=== PATIENT | female | born 1965 | race African-American/Black ===

== ENCOUNTER 2020-03-15 13:57 | Outpatient (REF) | payer MEDICAID, SELFPAY ==
--- NOTE | 2020-03-15 | US_ITS ---
EXAMINATION: US CHEST CLINICAL INFORMATION: Superficial lump over left shoulder COMPARISON: None TECHNIQUE: Doppler and grayscale evaluation of the soft tissues over the left shoulder FINDINGS: There is a 0.9 x 0.7 x 1 cm solid hyperechoic lesion corresponding to palpable abnormality. This appears avascular. Ultrasound appearance is suggestive of a lipoma. This is 2 mm deep from the skin surface. IMPRESSION: 0.9 x 0.7 x 1 cm solid hyperechoic lesion suggestive of a lipoma. Management should be determined on a clinical basis.
== END 2020-03-15 13:58 | disposition home or self-care (01) ==
LOC: HO.US 13:57
PROVIDERS: Visit Provider Internal Medicine
DX: R60.9 Edema, unspecified (principal)
CPT/HCPCS: 76604

== ENCOUNTER 2020-09-23 13:13 | Outpatient (REF) | payer MEDICAID, SELFPAY ==
--- NOTE | ~2020-09-23 | MM_ITS ---
EXAMINATION: MM DIAGNOSTIC DIGITAL BREAST TOMOSYNTHESIS, LEFT CLINICAL INFORMATION: Short interval six-month follow-up probable benign grouped calcifications central and mid outer left breast. Prior history reduction mammoplasty 1997 and benign left excisional biopsy 1994. Family history breast cancer mother, age 42 and sister. Family history ovarian cancer in another sister. One sister +BRCA1. The lifetime risk of breast cancer based on the Tyrer-Cuzick Model is 34%. COMPARISON: Mammography: 01/29/2020, outside mammography from [place] 04/06/2017, 03/24/2016 and 07/31/2014. TECHNIQUE: Digital breast tomosynthesis is performed in both the craniocaudal and mediolateral oblique views along with computer-aided detection (CAD). Synthesized 2D images are generated from the tomosynthesis. Additional views are obtained: Exaggerated CC, magnification CC x2, magnification ML x2. FINDINGS: The breasts are heterogeneously dense, which may obscure small masses (ACR BI-RADS breast composition Category c). Parenchymal pattern is similar to prior studies. There is no developing density or interval mass or architectural abnormality. The 3 groups of calcifications central and mid outer left breast for follow-up are stable from prior diagnostic exam. In retrospect, they are likely chronic and stable from more remote outside studies, although better appreciated with magnification technique. Given the family history and TC lifetime risk score, continued surveillance will be performed, next due at time of annual mammography in 6 months. Results are provided to the patient at time of visit by the technologist. MM/MM tomosynthesis diagnostic LT IMPRESSION: The left breast calcifications for follow-up are stable from prior diagnostic exam, and likely chronic, similar to standard mammography. ASSESSMENT: BI-RADS 3: Probably Benign RECOMMENDATION: Diagnostic mammography at time of annual bilateral exam, due in 6 months. This patient's information was entered into a reminder system with a target due date for their next mammogram.
== END 2020-09-23 13:14 | disposition home or self-care (01) ==
LOC: HO.MAMMO 13:13
PROVIDERS: Visit Provider Internal Medicine
DX: R92.1 Mammographic calcification found on diagnostic imaging of breast (principal)
CPT/HCPCS: 77061; 77065

== ENCOUNTER → 2020-10-08 19:18 | Outpatient (REF) | payer MEDICAID, SELFPAY | LOC: HO.SL 19:18 | PROVIDERS: Visit Provider Internal Medicine | DX: G47.33 Obstructive sleep apnea (adult) (pediatric) (principal) | CPT/HCPCS: 95811 ==

== ENCOUNTER → 2020-12-20 08:22 | Outpatient (BNVA) | payer MEDICAID, SELFPAY | PROVIDERS: PCP Internal Medicine; Referring Provider Internal Medicine; Visit Provider Surgery | DX: E66.01 Morbid (severe) obesity due to excess calories (principal); Z68.43 Body mass index [BMI] 50.0-59.9, adult | CPT/HCPCS: 99202 ==

== ENCOUNTER 2021-01-03 12:31 | Outpatient (REF) | payer MEDICAID, SELFPAY ==
--- NOTE | ~2021-01-03 | XR_ITS ---
EXAMINATION: XR CHEST CLINICAL INFORMATION: Shortness of breath COMPARISON: None TECHNIQUE: 2 views of the chest were obtained. FINDINGS: No significant abnormality is noted involving the heart, lungs, mediastinum, bony thorax or soft tissues. XR/XR chest 2V IMPRESSION: No acute disease.
--- NOTE | 2021-01-03 12:37 | ECG_ITS ---
Test Reason : SOB Blood Pressure : / mmHG Vent. Rate : 090 BPM Atrial Rate : 090 BPM P-R Int : 160 ms QRS Dur : 084 ms QT Int : 366 ms P-R-T Axes : 082 058 012 degrees QTc Int : 447 ms Sinus rhythm with Premature atrial complexes Nonspecific ST abnormality Abnormal ECG No previous ECGs available Referred By: Chasity Bliss Electronically Signed By:Waldemar Santana
[2021-01-03 13:04] LABS: MANUAL DIFF FLAG NO
[2021-01-03 13:07] LABS: Basophils Percent Auto 0.4 % (0-2); Eosinophils Absolute Auto 0.1 X10*3/uL (0.0-0.4); Eosinophils Percent Auto 1.3 % (0-4); Hematocrit 43.2 % (37-47); Imm Gran Abs Auto 0.02 X10*3/uL (0.00-0.03); Imm Gran Pct Auto 0.2 % (0.0-0.4); Lymphocytes Absolute Auto 2.1 X10*3/uL (1.2-4.9); Lymphocytes Percent Auto 24.5 % (20-40); Mean Corpuscular HGB Conc 32.4 g/dl (31.0-35.0); Mean Corpuscular Hemoglobin 29.8 pg (27.0-33.0); Mean Corpuscular Volume 91.9 fL (80-98); Mean Platelet Volume 12.1 fL (9.4-12.3); Monocytes Absolute Auto 0.6 X10*3/uL (0.1-1.2); Monocytes Percent Auto 7.2 % (2-11); Neutrophils Absolute Auto 5.6 X10*3/uL (2.0-8.3); Neutrophils Percent Auto 66.4 % (45-73); Platelet Count 253 X10*3/uL (160-400); Red Cell Distribution Width 12.6 % (11.0-16.0); White Blood Count 8.4 X10*3/uL (4.8-10.8)
[2021-01-03 13:17] LABS: Estimated Average Glucose 126 mg/dL
[2021-01-03 13:32] LABS: Alanine Aminotransferase 50 U/L (0-31); Albumin Level 4.1 g/dL (3.5-5.0); Alkaline Phosphatase 59 U/L (39-117); Anion Gap 13 (12-20); Aspartate Amino Transferase 29 U/L (5-31); Bilirubin Total 0.5 mg/dL (0.0-1.0); Blood Urea Nitrogen 19 mg/dL (9-16); C Reactive Protein 2.51 mg/dL (< or = 0.50); Calcium 10.3 mg/dL (8.4-10.2); Carbon Dioxide 31 mmol/L (22-29); Chloride 101 mmol/L (96-108); Cholesterol 88 mg/dL; Estimated Glomerular Filt Rate 44; Glucose Fasting 111 mg/dL (60-99); HDL Cholesterol 33 mg/dL; Iron 48 mcg/dL (30-160); LDL Cholesterol Calculated 44 mg/dl; Percent Iron Saturation 17 % (15-50); Potassium 3.8 mmol/L (3.3-5.1); Sodium 141 mmol/L (135-145); Total Iron Binding Capacity 282 mcg/dL (228-428); Total Protein 7.8 g/dL (6.5-8.0); Triglycerides 59 mg/dL; Unsaturated Iron Binding 234 ug/dL
[2021-01-03 13:52] LABS: Thyroid Stimulating Hormone 1.81 uIU/mL (0.32-4.0); Vitamin D 25-OH Total 42.6 ng/mL (>30)
[2021-01-03 13:57] LABS: Vitamin B12 585 pg/mL (200-900)
[2021-01-06 11:36] LABS: Calcium (PTHI) 10.1 mg/dL (8.6-10.4); PTHI 67 pg/mL (14-64)
[2021-01-07 05:17] LABS: Zinc 99 mcg/dL (60-130)
[2021-01-07 19:51] LABS: Vitamin A 83 mcg/dL (38-98)
[2021-01-09 12:40] LABS: Vitamin B1 <6 nmol/L (8-30)
[2021-01-11 01:57] LABS: Cotinine, U 3926 ng/mL; Nicotine, U 3921 ng/mL
== END 2021-01-03 12:32 | disposition home or self-care (01) ==
LOC: HO.XRAY 12:31
PROVIDERS: PCP Internal Medicine; Visit Provider Surgery
DX: Z01.818 Encounter for other preprocedural examination (principal); R06.02 Shortness of breath; K91.2 Postsurgical malabsorption, not elsewhere classified; Z90.3 Acquired absence of stomach [part of]; Z87.891 Personal history of nicotine dependence
CPT/HCPCS: 71046; 80053; 80061; 80323; 82306; 82607; 83013; 83036; 83540; 83970; 84425; 84443; 84590; 84630; 85025; 86140; 93005; 99211

== ENCOUNTER 2021-01-03 13:30 | Outpatient (REF) | payer MEDICAID, SELFPAY ==
[2021-01-07 14:02] LABS: H Pylori Breath Test NOT DETECTED (NOT DETECTED)
== END 2021-01-03 13:31 | disposition home or self-care (01) ==
LOC: HO.LNP 13:30
PROVIDERS: Visit Provider Surgery
DX: Z01.818 Encounter for other preprocedural examination (principal)
CPT/HCPCS: 83013

== ENCOUNTER → 2021-01-06 07:52 | Outpatient (BNVA) | payer MEDICAID, SELFPAY | PROVIDERS: PCP Internal Medicine; Visit Provider Surgery ==

== ENCOUNTER → 2021-01-17 08:23 | Outpatient (BNVA) | payer MEDICAID, SELFPAY | PROVIDERS: PCP Internal Medicine; Visit Provider Dietitian, Registered | DX: E66.01 Morbid (severe) obesity due to excess calories (principal); E11.9 Type 2 diabetes mellitus without complications; Z71.3 Dietary counseling and surveillance | CPT/HCPCS: 97802 ==

== ENCOUNTER → 2021-02-07 14:03 | Outpatient (BNVA) | payer MEDICAID, SELFPAY | PROVIDERS: PCP Internal Medicine; Referring Provider Internal Medicine; Visit Provider Surgery | DX: E66.01 Morbid (severe) obesity due to excess calories (principal); Z68.42 Body mass index [BMI] 45.0-49.9, adult | CPT/HCPCS: 99212 ==

== ENCOUNTER 2021-02-24 13:38 | Outpatient (REF) | payer MEDICAID, SELFPAY ==
--- NOTE | ~2021-02-24 | MM_ITS ---
EXAMINATION: MM DIAGNOSTIC DIGITAL BREAST TOMOSYNTHESIS, BILATERAL CLINICAL INFORMATION: Due for yearly. Also follow-up surveillance probable benign groups of calcifications central outer and mid outer left breast. Prior history reduction mammoplasty 1997 and benign left excisional biopsy 1994. Family history breast cancer mother, age 42 and sister. Family history ovarian cancer in another sister. One sister +BRCA1. The lifetime risk of breast cancer based on the Tyrer-Cuzick Model is 27%. To date patient has not had genetic testing. She notes having had a benign/negative outside high risk breast MR exam in past year performed in [place], [place]. COMPARISON: Mammography: 09/23/2020, 01/29/2020 (diagnostic, BI-RADS 3); outside mammography from [place] 04/06/2017, 03/24/2016 and 07/31/2014. TECHNIQUE: Digital breast tomosynthesis is performed in both the craniocaudal and mediolateral oblique views along with computer-aided detection (CAD). Synthesized 2D images are generated from the tomosynthesis. Additional views are obtained: Left MLO, magnification left CC, magnification left ML x2. FINDINGS: The breasts are heterogeneously dense, which may obscure small masses (ACR BI-RADS breast composition Category c). Parenchymal pattern is similar to prior studies and there is no interval mass, developing density, or architectural abnormality. Again, there is benign bulky coarse calcification posterior 4:00 right breast and scattered bilateral benign punctate predominantly dermal calcifications. The left breast calcifications for follow-up in 3 groups anterior to mid central outer breast are without significant change from prior diagnostic exam. These are likely chronic but better appreciated on more recent diagnostic mammography with magnification views. Continued surveillance is recommended with left mammography in 6 months. Results are discussed with the patient at time of visit. MM/MM tomosynthesis diagnostic BI IMPRESSION: 1. Left: No significant changes in the 3 groups of calcifications central outer left breast. 2. Right: No mammographic evidence of malignancy. ASSESSMENT: BI-RADS 3: Probably Benign RECOMMENDATION: 1. Diagnostic left mammography in 6 months. 2. The lifetime risk of breast cancer based on the Tyrer-Cuzick Model is 27%. Additional annual adjunct screening with breast MRI may be of benefit in women with a risk score of 20% or greater. This patient's information was entered into a reminder system with a target due date for their next mammogram.
== END 2021-02-24 13:39 | disposition home or self-care (01) ==
LOC: HO.MAMMO 13:38
PROVIDERS: Visit Provider Internal Medicine
DX: R92.1 Mammographic calcification found on diagnostic imaging of breast (principal)
CPT/HCPCS: 77062; 77066

== ENCOUNTER 2021-02-26 13:23 | Outpatient (REF) | payer MEDICAID, SELFPAY ==
[2021-03-04 16:07] LABS: Vitamin B1 12 nmol/L (8-30)
[2021-03-04 19:41] LABS: Cotinine, U 20 ng/mL; Nicotine, U 7 ng/mL
== END 2021-02-26 13:24 | disposition home or self-care (01) ==
LOC: HO.LAB 13:23
PROVIDERS: PCP Internal Medicine; Referring Provider Internal Medicine; Visit Provider Surgery
DX: Z01.818 Encounter for other preprocedural examination (principal); E66.01 Morbid (severe) obesity due to excess calories; Z68.42 Body mass index [BMI] 45.0-49.9, adult; E51.9 Thiamine deficiency, unspecified; Z87.891 Personal history of nicotine dependence
CPT/HCPCS: 36415; 80323; 84425; 99212

== ENCOUNTER 2021-03-28 15:48 | Outpatient (REF) | payer MEDICAID, SELFPAY ==
--- NOTE | ~2021-03-28 | XR_ITS ---
EXAMINATION: XR ANKLE, RIGHT XR ANKLE, LEFT CLINICAL INFORMATION: Bilateral pain and swelling COMPARISON: None TECHNIQUE: 3 views of the right ankle. 3 views of the left ankle. FINDINGS: Right ankle: No fracture or dislocation. The ankle mortise is congruent. Moderate hypertrophic spurring at the plantar aponeurosis to the calcaneus. Minimal spurring at the Achilles insertion. Circumferential soft tissue swelling which is greatest laterally. No significant joint effusion. Left ankle: No fracture or dislocation. The ankle mortise is congruent. No ankle joint effusion. Moderate hypertrophic spurring at the plantar aponeurosis to the calcaneus. Mild soft tissue swelling. XR/XR ankle LT min 3V IMPRESSION: No acute osseous abnormality of either ankle. Mild soft tissue swelling. Heel spurs.
--- NOTE | ~2021-03-28 | US_ITS ---
EXAMINATION: US VENOUS ULTRASOUND WITH DOPPLER LOWER EXTREMITY, BILATERAL CLINICAL INFORMATION: Bilateral lower extremity pain, ankle swelling. Assess for occult DVT. COMPARISON: None TECHNIQUE: Ultrasound of the deep veins is performed from the hip to the calf with compression sonography and color and pulse Doppler assessment. Spectral analysis with color-flow imaging is performed. FINDINGS: RIGHT: There is normal venous compression and respiratory variation and augmented flow. The visualized common femoral vein, superficial femoral vein, profunda femoral vein, popliteal vein, and the trifurcation region shows no evidence of deep venous thrombosis. No popliteal fossa cyst. LEFT: There is normal venous compression and respiratory variation and augmented flow. The visualized common femoral vein, superficial femoral vein, profunda femoral vein, popliteal vein, and the trifurcation region shows no evidence of deep venous thrombosis. No popliteal fossa cyst. US/US venous duplex LE BI IMPRESSION: No DVT demonstrated in the bilateral lower extremity.
--- NOTE | ~2021-03-28 | XR_ITS ---
EXAMINATION: XR ANKLE, RIGHT XR ANKLE, LEFT CLINICAL INFORMATION: Bilateral pain and swelling COMPARISON: None TECHNIQUE: 3 views of the right ankle. 3 views of the left ankle. FINDINGS: Right ankle: No fracture or dislocation. The ankle mortise is congruent. Moderate hypertrophic spurring at the plantar aponeurosis to the calcaneus. Minimal spurring at the Achilles insertion. Circumferential soft tissue swelling which is greatest laterally. No significant joint effusion. Left ankle: No fracture or dislocation. The ankle mortise is congruent. No ankle joint effusion. Moderate hypertrophic spurring at the plantar aponeurosis to the calcaneus. Mild soft tissue swelling. XR/XR ankle RT min 3V IMPRESSION: No acute osseous abnormality of either ankle. Mild soft tissue swelling. Heel spurs.
== END 2021-03-28 15:49 | disposition home or self-care (01) ==
LOC: HO.US 15:48
PROVIDERS: PCP Internal Medicine; Visit Provider Emergency Medicine
DX: M25.473 Effusion, unspecified ankle (principal)
CPT/HCPCS: 73610; 93970

== ENCOUNTER → 2021-04-07 14:12 | Outpatient (BNVA) | payer MEDICAID, SELFPAY | PROVIDERS: PCP Internal Medicine; Referring Provider Internal Medicine; Visit Provider Physician Assistant Surgical | DX: E66.01 Morbid (severe) obesity due to excess calories (principal); Z68.42 Body mass index [BMI] 45.0-49.9, adult | CPT/HCPCS: 99212 ==

== ENCOUNTER → 2021-06-10 12:29 | Outpatient (BNVA) | payer MEDICAID, SELFPAY | PROVIDERS: PCP Internal Medicine; Visit Provider Surgery Vascular Surgery | DX: I83.11 Varicose veins of right lower extremity with inflammation (principal) | CPT/HCPCS: 99212 ==

== ENCOUNTER → 2021-06-20 08:04 | Outpatient (BNVA) | payer MEDICAID, SELFPAY | PROVIDERS: PCP Internal Medicine; Visit Provider Physician Assistant Surgical ==

== ENCOUNTER → 2021-06-23 08:02 | Outpatient (BNVA) | payer MEDICAID, SELFPAY | PROVIDERS: PCP Internal Medicine; Visit Provider Physician Assistant Surgical ==

== ENCOUNTER → 2021-07-02 14:36 | Outpatient (BNVA) | payer MEDICAID, SELFPAY | PROVIDERS: PCP Internal Medicine; Visit Provider Physician Assistant | DX: M76.70 Peroneal tendinitis, unspecified leg (principal); M72.2 Plantar fascial fibromatosis | CPT/HCPCS: 99202 ==

== ENCOUNTER 2021-08-25 14:43 | Outpatient (REF) | payer MEDICAID, SELFPAY ==
--- NOTE | ~2021-08-25 | MM_ITS ---
EXAMINATION: MM DIAGNOSTIC DIGITAL BREAST TOMOSYNTHESIS, LEFT CLINICAL INFORMATION: Follow-up surveillance probable benign groups of calcifications central outer and mid outer left breast. Prior history reduction mammoplasty 1997 and prior history benign left excisional biopsy 1994. Family history breast cancer mother, age 42 and sister. Family history ovarian cancer in another sister. One sister +BRCA1. COMPARISON: Mammography: 02/24/2021, 01/23/2021, 01/29/2020 (diagnostic, BI-RADS 3); outside mammography 04/06/2017 ([place], [place]). TECHNIQUE: Digital breast tomosynthesis is performed in both the craniocaudal and mediolateral oblique views along with computer-aided detection (CAD). Synthesized 2D images are generated from the tomosynthesis. Additional views are obtained: CC, MLO, magnification CC, magnification ML x2. FINDINGS: The breasts are heterogeneously dense, which may obscure small masses (ACR BI-RADS breast composition Category c). Parenchymal distribution is similar to prior studies. There is no developing density or interval mass or architectural abnormality. The axilla and skin contours are unremarkable. Left breast calcifications for follow-up anterior to mid central outer breast in several groups are similar to prior diagnostic exams. There are no focal increasing calcifications. Calcifications will be reassessed again at time of annual mammography to conclude two-year surveillance. Results are provided to the patient at time of visit by the technologist. MM/MM tomosynthesis diagnostic LT IMPRESSION: No significant changes from prior diagnostic studies. ASSESSMENT: BI-RADS 3: Probably Benign RECOMMENDATION: Diagnostic mammography at time of annual bilateral mammography, due in 6 months. This patient's information was entered into a reminder system with a target due date for their next mammogram.
== END 2021-08-25 14:44 | disposition home or self-care (01) ==
LOC: HO.MAMMO 14:43
PROVIDERS: PCP Internal Medicine; Visit Provider Internal Medicine
DX: R92.1 Mammographic calcification found on diagnostic imaging of breast (principal)
CPT/HCPCS: 77061; 77065

== ENCOUNTER → 2021-08-29 08:09 | Outpatient (BNVA) | payer MEDICAID, SELFPAY | PROVIDERS: PCP Internal Medicine; Visit Provider Physician Assistant Surgical | DX: E66.01 Morbid (severe) obesity due to excess calories (principal) | CPT/HCPCS: Q3014 ==

== ENCOUNTER 2021-09-24 07:57 | Outpatient (REF) | payer MEDICAID, SELFPAY ==
--- NOTE | ~2021-09-24 | US_ITS ---
EXAMINATION: US LOWER EXTREMITY VENOUS (REFLUX EXAM), BILATERAL CLINICAL INDICATION: This is a 56-year-old female with venous insufficiency and varicose veins. COMPARISON: None. TECHNIQUE: Color flow triplex imaging and compression Doppler was performed to evaluate both the deep and the superficial systems bilaterally. To evaluate the superficial system, the examination was performed in the upright position. Color-flow Doppler ultrasound and compression ultrasound were utilized. In addition, maneuvers were utilized to demonstrate reflux. FINDINGS: 1. DEEP VENOUS ULTRASOUND OF THE RIGHT LOWER EXTREMITY: Common Femoral Vein: Compressible, normal respiratory variation and augmented flow. Femoral vein: Compressible, normal color flow and augmentation. Popliteal Vein: Compressible, normal augmentation. There is reflux in the popliteal vein with reflux of 808 ms. Deep Reflux: There is no evidence of reflux in the deep system in either the common femoral vein. There is reflux in the popliteal vein. There is no evidence of a Blum's cyst. 2. SUPERFICIAL ULTRASOUND WITH DOPPLER OF RIGHT LOWER EXTREMITY: GREAT SAPHENOUS VEIN: Saphenofemoral Junction: 0.9 cm. The reflux time is 3252 ms. Mid Thigh: 0.6 cm. The reflux time is 1268 ms. Above Knee: 0.9 cm. The reflux time is 3508 ms. Below Knee: 0.6 cm. The reflux time is 3552 ms per Mid Calf: 0.3 cm. The reflux time is 1752 ms. Ankle: 0.3 cm. There is no reflux. GSV REFLUX: There is reflux throughout the great saphenous vein. DUPLICATED GREAT SAPHENOUS VEIN: None SMALL SAPHENOUS VEIN: Proximal: 0.6 cm Distal: 0.4 cm SSV REFLUX: No evidence of reflux. VEIN OF GIACOMINI: None Imaged. PERFORATORS: There are 0.2 cm perforators with reflux in the mid calf. Multiple perforators are present. VARICOSITIES: This veins are present. There is a 0.5 cm varicose vein with greater than 2 seconds of reflux off the small saphenous vein. There are 0.5 cm varicose veins in the proximal thigh and mid thigh with greater than 3 seconds of reflux. 3. DEEP VENOUS ULTRASOUND OF THE LEFT LOWER EXTREMITY: Common Femoral Vein: Compressible, normal respiratory variation and augmented flow. Femoral Vein: Compressible, normal color flow and augmentation. Popliteal Vein: Compressible, normal augmentation. There is reflux in the popliteal vein of 1656 ms. Deep Reflux: There is no evidence of reflux in the deep system in either the common femoral vein. But there is reflux in the popliteal vein. There is no evidence of a Blum's cyst. 4. SUPERFICIAL ULTRASOUND WITH DOPPLER OF LEFT LOWER EXTREMITY: GREAT SAPHENOUS VEIN: Saphenofemoral Junction: 1.3 cm Mid Thigh: 0.3 cm. There is no reflux. Above Knee: 0.5 cm. The reflux time is 3504 ms. Below Knee: 0.3 cm. There is no reflux. Mid Calf: 0.3 cm. The reflux time is 2526 ms. Ankle: 0.3 cm. The reflux time is 1000 728 ms. GSV REFLUX: There is reflux in the great saphenous vein but not at the saphenofemoral junction. DUPLICATED GREAT SAPHENOUS VEIN: There is a 0.5 cm duplicated medial great saphenous vein without reflux. SMALL SAPHENOUS VEIN: Proximal: 0.4 cm Distal: 0.5 cm SSV REFLUX: No evidence of reflux. VEIN OF GIACOMINI: None Imaged. PERFORATORS: There are 0.2 cm calf perforators. In the anterior calf there is greater than 2 seconds of reflux. VARICOSITIES: There are 0.3 cm and 0.4 cm, respectively, varicose veins in the proximal distal thigh. There is reflux in the 0.4 cm anterior tibial varicose veins. There is reflux in the varicose veins in the calf. US/US venous duplex LE BI IMPRESSION: 1. There is a patent right great saphenous vein with reflux throughout its course including the saphenofemoral junction. 2. There is a patent right small saphenous vein without evidence of reflux. 3. There are varicose veins with greater than 3 seconds of reflux in the right leg. 4. There is a patent left great saphenous vein without evidence of reflux at the saphenofemoral junction or within the thigh. 5. There is a patent left small saphenous vein without evidence of reflux. 6. There are varicose veins in the left leg with reflux.
== END 2021-09-24 07:58 | disposition home or self-care (01) ==
LOC: HO.US 07:57
PROVIDERS: Visit Provider Surgery Vascular Surgery
DX: I83.11 Varicose veins of right lower extremity with inflammation (principal)
CPT/HCPCS: 93970

== ENCOUNTER → 2021-10-14 14:47 | Outpatient (REF) | payer MEDICAID, SELFPAY ==
--- NOTE | 2021-10-14 14:56 | CA_ITS ---
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 The left ventricular systolic function is normal. The calculated ejection fraction is 55% by biplane method. - Evidence suggests grade II (moderate) diastolic dysfunction. - The basal inferior segment is akinetic. - Moderately increased right ventricular cavity size. - The mitral valve appears rheumatic. There is mild anterior mitral leaflet thickening. There is moderate mitral valve regurgitation. There is moderate mitral valve stenosis. Findings Left Ventricle Normal left ventricular cavity size. There is mildly increased left ventricular wall thickness. The left ventricular systolic function is normal. The calculated ejection fraction is 55% by biplane method. There is evidence of regional wall motion abnormalities. E/E prime ratio is >15, consistent with elevated filling pressures. Evidence suggests grade II (moderate) diastolic dysfunction. Wall Motion Rest Echo Findings The basal inferior segment is akinetic. Right Ventricle Moderately increased right ventricular cavity size. There is normal right ventricular systolic function. Atria The left atrium is severely dilated. The right atrium is normal in size. Aortic Valve There is a normal trileaflet aortic valve. There is no aortic valve stenosis. There is no aortic valve regurgitation. Mitral Valve The mitral valve appears rheumatic. There is mild anterior mitral leaflet thickening. There is moderate mitral valve regurgitation. There is moderate mitral valve stenosis. Mean gradient across the mitral valve 7 mm Hg at 70/Min. Pulmonic Valve The pulmonic valve was not well visualized. Tricuspid Valve Normal tricuspid valve structure. There is trace tricuspid valve regurgitation. The pulmonary artery systolic pressure is normal. Great Vessels The asc aorta is normal in size. Venous The inferior vena cava is normal in size and collapses greater than 50% with inspiration. Pericardium/Pleural There is no evidence of pericardial effusion. Prior Study Comparison No prior study available for comparison. Measurements 2D Linear Measurements IVSd: 1.10 0.6-0.9/0.6-1.0 cm LVIDd: 4.87 3.9-5.3/4.2-5.9 cm LVIDd Index: 1.89 2.4-3.2/2.2-3.1 cm/m2 LVIDs: 3.15 2.0-3.6 cm LVPWd: 1.14 0.7-1.1 cm LA Diam: 5.20 2.7-3.8/3.0-4.0 cm LAIDs Index: 2.02 1.5-2.3 cm/m2 LV Mass: 253.68 67-162/88-224 g LV Mass Index: 98.71 43-95/49-115 g/m2 LVOT Diam: 2.30 3.0+(-)1.3 cm 2D Systolic Function EF 4C: 53.60 >55% EF 2C: 57.50 >55% EF BiP: 54.50 >55% Mitral Valve MV VTI: 0.62 MV Pk Loy: 2.48 MV Mn Loy: 1.23 MV Pk Grad: 25.00 MV Mn Grad: 7.00 MV Pk E: 1.05 MV PK A: 1.04 MV Decel Time: 246.00 E/A: 1.00 E'Lateral: 9.68 E'Medial: 6.53 E/E' Med: 16.10 E/E' Lat: 10.80 PHT: 72.00 MVA PHT: 3.06 MVA Continuity: 1.28 Decel Colquitt: 4.26 MR Vol - PW Dopp: 35.20 MR VTI: 1.76 MR ERO: 20.00 MR Alias Loy: 0.33 MR RAD: 0.70 Aortic Valve AoV Pk Loy: 1.38 AoV Mn Loy: 0.97 AoV VTI: 0.26 AoV Pk Grad: 8.00 Aov Mn Grad: 4.00 ALTAF Cont.VTI: 3.01 LVOT LVOT Pk Loy: 0.86 LVOT Mn Loy: 0.60 LVOT VTI: 0.19 LVOT Pk Grad: 3.00 LVOT Mn Grad: 2.00 LVOT Diam: 2.30 LVOT Area: 4.15 Diastolic Function MV Pk E: 1.05 MV Pk A: 1.04 E/A: 1.00 E'Medial: 6.53 E/E' Med: 16.10 E' Laterial: 9.68 E/E' Lat: 10.80 Right Ventricle TAPSE (mm): 24.30 TVS' Loy: 10.00 Tricuspid Valve TR Pk Loy: 2.73 TR Pk Grad: 30.00 RA Press: 3.00 RVSP: 33.00 Great Vessels Aorta Sinus of Valsalva: 3.53 2.0-3.[address] Ridge: 2.58 1.7-3.4 cm Ao Asc: 3.40 2.1-3.4 cm Updated in Other Vendor System with Status of Final David Masterson MD electronically signed on 10/16/2021 3:05:36 PM with status of Final
== END ==
LOC: HO.CARD 14:47
PROVIDERS: Absent Provider Internal Medicine Cardiovascular Disease; PCP Internal Medicine; Visit Provider Internal Medicine
DX: R06.00 Dyspnea, unspecified (principal); R06.01 Orthopnea
CPT/HCPCS: 93306

== ENCOUNTER → 2021-10-15 09:43 | Outpatient (BNVA) | payer MEDICAID, SELFPAY | PROVIDERS: PCP Internal Medicine; Visit Provider Internal Medicine Cardiovascular Disease | DX: R06.02 Shortness of breath (principal) | CPT/HCPCS: 93005; 99202 ==

== ENCOUNTER → 2021-10-28 15:25 | Outpatient (BNVA) | payer MEDICAID, SELFPAY | PROVIDERS: PCP Internal Medicine; Visit Provider Surgery Vascular Surgery | DX: I83.11 Varicose veins of right lower extremity with inflammation (principal) | CPT/HCPCS: 99212 ==

== ENCOUNTER → 2021-11-07 10:15 | Outpatient (BNVA) | payer MEDICAID, SELFPAY | PROVIDERS: PCP Internal Medicine; Visit Provider Surgery Vascular Surgery | DX: I83.11 Varicose veins of right lower extremity with inflammation (principal) | CPT/HCPCS: 36475 ==

== ENCOUNTER 2021-11-11 14:33 | Outpatient (REF) | payer MEDICAID, SELFPAY ==
--- NOTE | ~2021-11-11 | US_ITS ---
EXAMINATION: US VENOUS ULTRASOUND WITH DOPPLER LOWER EXTREMITY, RIGHT CLINICAL INFORMATION: Pain right leg. COMPARISON: None TECHNIQUE: Ultrasound of the deep veins is performed from the hip to the calf with compression sonography and color and pulse Doppler assessment. Spectral analysis with color-flow imaging is performed. FINDINGS: There is normal venous compression and respiratory variation and augmented flow. The visualized common femoral vein, superficial femoral vein, profunda femoral vein, popliteal vein, and the trifurcation region shows no evidence of deep venous thrombosis. There is no significant popliteal fossa cyst. There is thrombus visualized in the right greater saphenous vein 2 cm from common femoral venous junction. Incidental finding of a thrombosed varicose vein right distal medial thigh. If the patient's symptoms persist, followup ultrasound in 5 days 7 days might be of value to exclude proximal propagation from a non-visualized calf vein. US/US venous duplex LE RT IMPRESSION: No DVT demonstrated in the right lower extremity. Superficial thrombosis varicose vein right medial lower thigh. Thrombosed proximal greater saphenous vein status post venous ablation.
== END 2021-11-11 14:34 | disposition home or self-care (01) ==
LOC: HO.US 14:33
PROVIDERS: Visit Provider Surgery Vascular Surgery
DX: M79.604 Pain in right leg (principal)
CPT/HCPCS: 93971

== ENCOUNTER → 2021-11-27 08:48 | Outpatient (REF) | payer MEDICAID, SELFPAY ==
--- NOTE | ~2021-11-27 | NM_ITS ---
Myocardial perfusion study Indication: Shortness of breath evaluate for myocardial ischemia Technique: The patient was brought in for a Lexiscan perfusion study on 11/27/2021. Patient performed low-level exercise and was injected 0.4 mg of Lexiscan intravenously. Within a minute of injection, 45 mCi of sestamibi was given intravenously. Images were obtained using the SPECT gamma camera interlaced with the gating device. Images were obtained in supine position. Resting perfusion study was performed on 12/02/2021. Patient was administered 45 mCi of sestamibi intravenously at rest. Images were then obtained in supine position. Images obtained with and without CT attenuation. Total DLP 208 mGy-cm. Images were processed with the software and compared side to side in short axis, horizontal long axis and vertical long axis views. Findings: The stress perfusion study showed non attenuated images show moderately reduced uptake in the inferior as well as mildly reduced uptake in the lateral and inferolateral as well as mildly reduced uptake and inferoseptal wall of the LV myocardium. The anterior, anteroseptal and anterolateral wall of the perfusion. Attenuation corrected images show mildly reduced uptake in the apex of the LV myocardium. The gated study shows normal LV systolic function with visually estimated LVEF of greater than 60%. LV cavity is normal size. The gated study shows normal systolic wall thickening and contraction of segments. Resting study shows nontender images show improved uptake in the inferolateral, inferior and septal cardiac. And inferoseptal wall of the cardiac. Attenuated corrected images are suboptimal due to subdiaphragmatic uptake interfering with inferior wall.. Gating at rest reveals normal systolic wall motion with ejection fraction at 66%. The findings are consistent with equivocal for inferior, inferoseptal and inferolateral reversibility suggestive of ischemia. NM/NM casper perf SPECT rest & str Impression: 1. Myocardial perfusion imaging study shows possible inferior and inferolateral ischemia 2. Gated LVEF is 66% 3. Transient ischemic dilatation not present EKG is nondiagnostic for ischemia
--- NOTE | ~2021-11-27 | XR_ITS ---
EXAMINATION: XR CHEST CLINICAL INFORMATION: Dyspnea COMPARISON: 01/03/2021 TECHNIQUE: 2 views of the chest were obtained. FINDINGS: There is some mild pulmonary vascular congestion with upper zone redistribution most prominent in the right. There is some minimal thickening of the minor fissure compared to last year's radiograph. Findings are suggestive of subtle pulmonary vascular congestion. Please correlate clinically. Heart size normal. No gross pulmonary edema or pleural effusions. No lung masses or infiltrates. XR/XR chest 2V IMPRESSION: Question of mild pulmonary vascular congestion.
--- NOTE | 2021-11-27 08:56 | CA_ITS ---
Acquisition Time: 2021-11-27 09:04:41 Total Exercise Time: 00:02:00 Test Indications: SOB Medications: Protocol: LEXISCAN Max HR: 100 BPM 60% of Pred: 166 BPM Max BP: 144/082 mmHG Max Work Load: 1.6 METS Pharmacological stress test with Lexiscan injection, while walking slow on treadmill, with mild sob, no chest discomfort, without arrythmia, with normotensive response to injection, with nondiagnostic EKG for ischemia. Nuclear images pending. Test reviewed with Dr Masterson Referred By: Nik Esposito Overread By: JORJE RODRIGUEZ
== END ==
LOC: HO.CARD 08:48
PROVIDERS: PCP Internal Medicine; Visit Provider Internal Medicine Cardiovascular Disease
DX: R06.02 Shortness of breath (principal)
CPT/HCPCS: 71046; 78452; 93017; A9500; J0280; J2785

== ENCOUNTER → 2021-12-02 13:38 | Outpatient (BNVA) | payer MEDICAID, SELFPAY | PROVIDERS: PCP Internal Medicine; Visit Provider Surgery Vascular Surgery | DX: I83.12 Varicose veins of left lower extremity with inflammation (principal); Z98.890 Other specified postprocedural states | CPT/HCPCS: 99212 ==

== ENCOUNTER → 2021-12-26 10:33 | Outpatient (BNVA) | payer MEDICAID, SELFPAY | PROVIDERS: PCP Internal Medicine; Visit Provider Surgery Vascular Surgery | DX: I83.12 Varicose veins of left lower extremity with inflammation (principal) | CPT/HCPCS: 36475 ==

== ENCOUNTER 2021-12-29 08:50 | Outpatient (REF) | payer MEDICAID, SELFPAY ==
--- NOTE | ~2021-12-29 | US_ITS ---
EXAMINATION: US VENOUS ULTRASOUND WITH DOPPLER LOWER EXTREMITY, LEFT CLINICAL INFORMATION: Left leg pain, status post greater saphenous vein RFA. COMPARISON: None TECHNIQUE: Ultrasound of the deep veins is performed from the hip to the calf with compression sonography and color and pulse Doppler assessment. Spectral analysis with color-flow imaging is performed. FINDINGS: There is normal venous compression and respiratory variation and augmented flow. The visualized common femoral vein, superficial femoral vein, profunda femoral vein, popliteal vein, and the trifurcation region shows no evidence of deep venous thrombosis. The left greater saphenous vein shows tapering distally with flow seen in the visualized portions proximally. This component measures approximately 4 cm in length. No left popliteal cyst. The subcutaneous soft tissues are otherwise unremarkable. If the patient's symptoms persist, followup ultrasound in 5 days 7 days might be of value to exclude proximal propagation from a non-visualized calf vein. US/US venous duplex LE LT IMPRESSION: 1. No evidence for deep venous thrombosis in the visualized veins of the left lower extremity. 2. Proximal left greater saphenous vein with tapering distally consistent with recent ablation. The visualized proximal component is patent with visualized venous flow.
== END 2021-12-29 08:51 | disposition home or self-care (01) ==
LOC: HO.US 08:50
PROVIDERS: Visit Provider Surgery Vascular Surgery
DX: M79.605 Pain in left leg (principal)
CPT/HCPCS: 93971

== ENCOUNTER 2022-01-14 08:22 | Outpatient (REF) | payer MEDICAID, SELFPAY ==
--- NOTE | 2022-01-14 08:45 | PFT_ITS ---
FLOWS: FEV1 101% of predicted at 2.30 L. FVC 113% of predicted at 3.26 L. FEV1 to FVC ratio of 0.71. No bronchodilator response except in small to medium airways. LUNG VOLUMES: Total lung capacity 106% of predicted at 5.24 L. Residual volume 112% of predicted at 2.03 L. Slow vital capacity 87% of predicted at 3.21 L. Expiratory reserve volume 22% of predicted at 0.26 L. Diffusion capacity is moderately decreased, diffusion capacity adjust to being mildly decreased after correction for alveolar ventilation. IMPRESSION: Mild obstructive reversible ventilatory defect with no bronchodilator response except in small to medium airways. Decreased expiratory reserve volume suggests extrathoracic restriction likely secondary to abdominal obesity. Decreased diffusion capacity suggests emphysema. MD DANNY Madden/MODL / [id number]
[2022-01-14 11:28] LABS: Anion Gap 13 (12-20); Blood Urea Nitrogen 20 mg/dL (9-16); Calcium 9.2 mg/dL (8.4-10.2); Carbon Dioxide 34 mmol/L (22-29); Chloride 99 mmol/L (96-108); Estimated Glomerular Filt Rate 51; Glucose Random 151 mg/dL (60-115); Potassium 4.6 mmol/L (3.3-5.1); Sodium 141 mmol/L (135-145)
== END 2022-01-14 08:23 | disposition home or self-care (01) ==
LOC: HO.RESP 08:22
PROVIDERS: Absent Provider Internal Medicine Cardiovascular Disease; PCP Internal Medicine; Visit Provider Internal Medicine
DX: J44.9 Chronic obstructive pulmonary disease, unspecified (principal)
CPT/HCPCS: 36415; 80048; 94060; 94727; 94729

== ENCOUNTER → 2022-01-15 10:21 | Outpatient (BNVA) | payer MEDICAID, SELFPAY | PROVIDERS: PCP Internal Medicine; Visit Provider Surgery Vascular Surgery | DX: I83.12 Varicose veins of left lower extremity with inflammation (principal); I83.11 Varicose veins of right lower extremity with inflammation | CPT/HCPCS: 99212 ==

== ENCOUNTER 2022-02-24 13:38 | Outpatient (REF) | payer MEDICAID, SELFPAY ==
--- NOTE | ~2022-02-24 | MM_ITS ---
EXAMINATION: MM DIAGNOSTIC DIGITAL BREAST TOMOSYNTHESIS, BILATERAL CLINICAL INFORMATION: Due for yearly. Follow-up surveillance probable benign groups of calcifications central outer and mid outer left breast. Prior history bilateral reduction mammoplasty 1997 and prior benign left excisional biopsy 1994. Family history breast cancer mother, age 42 and sister, age 35. Family history ovarian cancer in another sister. One sister +BRCA1. TC score 23%. COMPARISON: Mammography: 08/25/2021, 02/24/2021, 09/23/2020, 01/29/2020 (diagnostic, BI-RADS 3), 04/06/2017 ([place], [place]), 03/24/2016 ([place], [place]). TECHNIQUE: Digital breast tomosynthesis is performed in both the craniocaudal and mediolateral oblique views along with computer-aided detection (CAD). Synthesized 2D images are generated from the tomosynthesis. Additional views are obtained: Bilateral CC, magnification left CC x4, magnification left ML x3. FINDINGS: The breasts are heterogeneously dense, which may obscure small masses (ACR BI-RADS breast composition Category c). The parenchymal pattern is similar to prior studies and there is no interval mass or architectural abnormality or developing density. There is minor scarring consistent with the prior reduction mammoplasty along with scattered benign predominantly dermal calcifications lower right breast. The axilla are unremarkable. Left breast groups of calcifications for follow-up appear stable from prior diagnostic exams. They are also likely without significant change from more remote prior outside mammography. The left calcifications are now considered to be benign. Results are provided to the patient at time of visit by the technologist. MM/MM tomosynthesis diagnostic BI IMPRESSION: -No significant changes from prior studies. -Left breast calcifications for follow-up are stable from prior diagnostic studies and now considered to be benign. ASSESSMENT: BI-RADS 2: Benign RECOMMENDATION: Routine annual mammography screening. This patient's information was entered into a reminder system with a target due date for their next mammogram.
== END 2022-02-24 13:39 | disposition home or self-care (01) ==
LOC: HO.MAMMO 13:38
PROVIDERS: PCP Internal Medicine; Visit Provider Internal Medicine
DX: R92.1 Mammographic calcification found on diagnostic imaging of breast (principal)
CPT/HCPCS: 77062; 77066

== ENCOUNTER → 2022-05-12 13:33 | Outpatient (BNVA) | payer MEDICAID, SELFPAY | PROVIDERS: PCP General Practice; Visit Provider Surgery | DX: Z91.89 Other specified personal risk factors, not elsewhere classified (principal); Z80.3 Family history of malignant neoplasm of breast; Z84.81 Family history of carrier of genetic disease | CPT/HCPCS: 99202 ==

== ENCOUNTER → 2022-05-28 10:23 | Outpatient (BNVA) | payer MEDICAID, SELFPAY | PROVIDERS: PCP General Practice; Visit Provider Surgery | DX: Z91.89 Other specified personal risk factors, not elsewhere classified (principal); Z80.3 Family history of malignant neoplasm of breast; Z84.81 Family history of carrier of genetic disease ==

== ENCOUNTER → 2022-07-07 15:18 | Outpatient (BNVA) | payer MEDICAID, SELFPAY | PROVIDERS: PCP General Practice; Visit Provider Surgery | DX: R92.8 Other abnormal and inconclusive findings on diagnostic imaging of breast (principal); N64.4 Mastodynia; Z91.89 Other specified personal risk factors, not elsewhere classified; Z80.3 Family history of malignant neoplasm of breast; Z84.81 Family history of carrier of genetic disease; Z15.01 Genetic susceptibility to malignant neoplasm of breast | CPT/HCPCS: 99212 ==

== ENCOUNTER → 2022-09-04 13:13 | Outpatient (BNVA) | payer MEDICAID, SELFPAY | PROVIDERS: PCP General Practice; Visit Provider Nurse Practitioner Family | DX: I48.91 Unspecified atrial fibrillation (principal); I34.0 Nonrheumatic mitral (valve) insufficiency; I10 Essential (primary) hypertension; E66.01 Morbid (severe) obesity due to excess calories; Z79.01 Long term (current) use of anticoagulants; Z79.899 Other long term (current) drug therapy | CPT/HCPCS: 93005; 99212 ==

== ENCOUNTER 2022-12-22 09:51 | Outpatient (AMB) | payer MEDICAID, SELFPAY ==
[2022-12-22 10:15] VITALS: BP 120/83; PULSE 109; BMI 46.7
--- NOTE | 2022-12-22 10:15 | MHC.OFFVIS ---
Intake Vital Signs 12/22/22 10:15 Height 5 ft 9 in Weight 316 lb BMI 46.7 BP 120/83 Blood Pressure Location Rt brachial Position Sitting Pulse 109 H Intake Visit Reasons: Abnormal MRI of left breast, biopsy results Intake Note: This patient presents for a follow-up assessment for breast biopsy results. Patient denies complaints at this time. Contract Loader Required: No Accompanied by: Self / Same As Patient Allergies dulaglutide [[facility] Allergy (Severe, Verified 09/04/22 13:41) Rash Seasonal Allergies Allergy (Mild, Verified 09/04/22 13:41) Itching Medication List - Last Reconciled 12/22/22 by Ayush Haji MD acetaminophen 1,000 mg PO Q6H PRN blood sugar diagnostic (FreeStyle Lite Strips) As directed calcipotriene 0.005% topical BID clobetasol 0.05% grams topical BID codeine-guaifenesin 10-100 mg/5 mL 10 mL PO Q6H diclofenac sodium 1% 4 grams topical QID diltiazem HCl 240 mg PO DAILY flecainide 100 mg PO Q12H hydrochlorothiazide 25 mg PO DAILY ipratropium bromide 17 mcg/actuation (Atrovent HFA) 2 puffs PO TID lancets (FreeStyle Lancets) As directed losartan 50 mg PO DAILY melatonin 5 - 10 mg PO BEDTIME PRN metformin ER 1,000 mg PO BID methotrexate sodium 15 mg PO QWEEK metronidazole 500 mg PO TID montelukast 10 mg PO DAILY naproxen (Naprosyn) 500 mg PO BID PRN oxycodone 5 mg PO Q6H PRN rivaroxaban (Xarelto) 20 mg PO QPM sertraline 25 mg PO DAILY triamcinolone acetonide 0.1% appl topical BID HPI HPI Comments History of Present Illness Details 57-year-old female patient determined to be at high risk for breast cancer with a Tyrer-Cuzick remaining lifetime risk of breast cancer of 23%. She is G3 P 1 with 2 spontaneous abortions. She has a strong family history of breast cancer including her mother, sister, and niece. She also has a sister with ovarian cancer that was determined to be BRCA1 positive. The patient underwent bilateral breast reductions as well as bilateral breast biopsies which were benign. She reports some pain in the upper outer quadrant of the right breast and denies any symptoms in the left breast. Recent series of mammograms were reviewed in revealed bilateral areas of calcifications which have been followed every 6 months for the last several years. Her last mammogram of 02/24/2022 revealed stable calcifications with no significant change from the prior mammogram. Breast MRI obtained at [facility] revealed non mass enhancement in the left breast at the 3:30 o'clock position 6 cm from the nipple over a 1 cm area felt to be suspicious for malignancy an MR guided biopsy was recommended (BI-RADS 4). She underwent an MR guided left breast core biopsy on 11/16/2022. Pathology revealed dense fibrous stroma and atrophic fibroglandular breast tissue with focal calcifications. No atypia or malignancy was identified. She underwent genetic testing on 05/28/2022. Testing results were positive for BRCA1 mutation placing her at high risk for breast and ovarian cancer. No variance of unknown significance were identified. The patient was provided with a copy of the genetic testing results and MRI results. We previously discussed the implications of BRCA1 mutation including the high risk for breast cancer, ovarian cancer and possibly pancreatic cancer. I suggested further evaluation by genetic counseling and consideration of prophylactic mastectomies with reconstruction. In the meantime the patient has had a recent hospitalization for atrial fibrillation with cardioversion at [facility]. She reports having a rough several months and does not look for to having any further surgery at this time. [facility] Medical History Back pain Depression GERD (gastroesophageal reflux disease) HTN (hypertension) Lichen planus Type 2 diabetes mellitus Surgical History History of partial hysterectomy History of partial hysterectomy Hx of biopsy Hx of breast augmentation Hx of umbilical hernia repair Family History Mother Breast cancer, Onset Age: 40 Father Kidney failure Sister Breast cancer, Onset Age: 37 Son No problems noted. Sister Ovarian cancer, Onset Age: 55 Family/Other Breast cancer, Onset Age: 33 Social History Alcohol intake: current Alcohol intake frequency: a few times a month Alcohol type: beer and wine Patient Tobacco Use Status: Former Tobacco user Quit Date: 2014 Years Smoked: 22 e-Cigarette/Vaping Use: Currently Using Current occupation: Rt handed Female Reproductive History Menstrual Age of Menarche: 15 Review of Systems Const All systems reviewed & are unremarkable except as noted in HPI and below Physical Exam Vital Signs: Last Vital Signs Pulse 109 H 12/22/22 10:15 BP 120/83 12/22/22 10:15 BMI result Body Mass Index 46.7 Const General: comfortable Nutritional Appearance: well nourished Orientation/consciousness: patient oriented x3 Limitations: no limitations Chest Other: Exam deferred Resp Effort & Inspection: normal respiratory effort, no audible wheezes, no cough and no respiratory distress Skin Other: Warm, dry, no rash Neuro General: patient oriented x3 Extrem General: Yes normal to inspection Assessment & Plan Assessment & Plan (1) BRCA1 gene mutation positive: Code(s): Z15.01 - Genetic susceptibility to malignant neoplasm of breast; Z15.09 - Genetic susceptibility to other malignant neoplasm (2) Family history of breast cancer: Code(s): Z80.3 - Family history of malignant neoplasm of breast (3) Abnormal magnetic resonance imaging of left breast: Code(s): R92.8 - Other abnormal and inconclusive findings on diagnostic imaging of breast (4) At high risk for breast cancer: Code(s): Z91.89 - Other specified personal risk factors, not elsewhere classified (5) Family history of BRCA1 gene positive: Code(s): Z84.81 - Family history of carrier of genetic disease Plan 57-year-old female patient with a strong family history of breast cancer and ovarian cancer, found to be BRCA1 positive placing her at high risk for breast and ovarian cancer. The genetic testing results were discussed in detail with the patient. I recommended further discussion with genetic counselors. We also again discussed prophylactic bilateral mastectomy with or without reconstruction, as well as other risk reduction strategies include oophorectomy, close follow-up with frequent examination and breast MRIs. She expressed understanding and agrees to the genetic counseling. She will return in 6 months for follow-up breast examination but is welcome to return sooner for further discussion regarding the above or for new complaints. Orders: Referrals Genetics Referral Z15.01 - Genetic susceptibility to malignant neoplasm of breast, Z15.09 - Genetic susceptibility to other malignant neoplasm, Z80.3 - Family history of malignant neoplasm of breast Coding Level of Care Code Est Pt Level 3 (35553) Diagnoses BRCA1 gene mutation positive Z15.01; Z15.09 Family history of breast cancer Z80.3 Abnormal magnetic resonance imaging of left breast R92.8 At high risk for breast cancer Z91.89 Family history of BRCA1 gene positive Z84.81
== END 2022-12-22 10:48 | disposition home or self-care (01) ==
PROVIDERS: PCP General Practice; Visit Provider Surgery
DX: Z15.01 Genetic susceptibility to malignant neoplasm of breast (principal); Z15.09 Genetic susceptibility to other malignant neoplasm; Z80.3 Family history of malignant neoplasm of breast; R92.8 Other abnormal and inconclusive findings on diagnostic imaging of breast; Z91.89 Other specified personal risk factors, not elsewhere classified; Z84.81 Family history of carrier of genetic disease
CPT/HCPCS: 99213

== ENCOUNTER → 2022-12-22 09:51 | Outpatient (BNVA) | payer MEDICAID, SELFPAY | PROVIDERS: PCP General Practice; Visit Provider Surgery | DX: N64.2 Atrophy of breast (principal); R92.1 Mammographic calcification found on diagnostic imaging of breast; Z91.89 Other specified personal risk factors, not elsewhere classified; Z15.01 Genetic susceptibility to malignant neoplasm of breast; Z15.09 Genetic susceptibility to other malignant neoplasm; Z80.3 Family history of malignant neoplasm of breast; Z90.710 Acquired absence of both cervix and uterus; Z41.1 Encounter for cosmetic surgery; Z84.81 Family history of carrier of genetic disease | CPT/HCPCS: 99212 ==

== ENCOUNTER 2022-12-28 15:55 | Outpatient (REF) | payer MEDICAID, SELFPAY ==
[2022-12-28 17:33] LABS: MANUAL DIFF FLAG NO
[2022-12-28 18:47] LABS: Basophils Percent Auto 0.4 % (0-2); Eosinophils Absolute Auto 0.1 X10*3/uL (0.0-0.4); Eosinophils Percent Auto 1.3 % (0-4); Hematocrit 32.2 % (37.0-47.0); Hemoglobin 9.7 g/dl (12.0-16.0); Imm Gran Abs Auto 0.03 X10*3/uL (0.00-0.03); Imm Gran Pct Auto 0.4 % (0.0-0.4); Lymphocytes Percent Auto 23.9 % (20-40); Mean Corpuscular HGB Conc 30.1 g/dl (31.0-35.0); Mean Corpuscular Hemoglobin 29.1 pg (27.0-33.0); Mean Corpuscular Volume 96.7 fL (80.0-98.0); Mean Platelet Volume 11.7 fL (9.4-12.3); Monocytes Absolute Auto 0.9 X10*3/uL (0.1-1.2); Monocytes Percent Auto 11.2 % (2-11); Neutrophils Absolute Auto 5.2 x10*3/uL (2.0-8.3); Neutrophils Percent Auto 62.8 % (45-73); Platelet Count 423 X10*3/uL (160-400); Red Blood Count 3.33 X10*6/uL (4.20-5.50); Red Cell Distribution Width 13.7 % (11.0-16.0); White Blood Count 8.2 X10*3/uL (4.8-10.8)
== END 2022-12-28 15:56 | disposition home or self-care (01) ==
LOC: HO.HHCL 15:55
PROVIDERS: Visit Provider General Practice
DX: Z79.01 Long term (current) use of anticoagulants (principal)
CPT/HCPCS: 36415; 85025

== ENCOUNTER 2023-01-04 15:06 | Outpatient (AMB) | payer MEDICAID, SELFPAY ==
--- NOTE | 2023-01-04 14:37 | A.OFFVIS_ITS ---
Intake VS Expanded 01/04/23 14:47 Height 5 ft 9 in Weight 310 lb 14.4 oz BMI 45.9 Intake Visit Reasons: VIDEO re-establish SWL Shot Dropper Required: No Allergies [facility]ag[facility] [[facility] Allergy (Severe, Verified 09/04/22 13:41) Rash Seasonal Allergies Allergy (Mild, Verified 09/04/22 13:41) Itching Medication List - Last Reconciled 01/04/23 by CURT Fagan acetaminophen 1,000 mg PO Q6H PRN blood sugar diagnostic (FreeStyle Lite Strips) As directed calcipotriene 0.005% topical BID clobetasol 0.05% grams topical BID codeine-guaifenesin 10-100 mg/5 mL 10 mL PO Q6H diclofenac sodium 1% 4 grams topical QID diltiazem HCl 240 mg PO DAILY flecainide 100 mg PO Q12H hydrochlorothiazide 25 mg PO DAILY ipratropium bromide 17 mcg/actuation (Atrovent HFA) 2 puffs PO TID lancets (FreeStyle Lancets) As directed losartan 50 mg PO DAILY melatonin 5 - 10 mg PO BEDTIME PRN metformin ER 1,000 mg PO BID methotrexate sodium 15 mg PO QWEEK montelukast 10 mg PO DAILY naproxen (Naprosyn) 500 mg PO BID PRN oxycodone 5 mg PO Q6H PRN rivaroxaban (Xarelto) 20 mg PO QPM sertraline 25 mg PO DAILY triamcinolone acetonide 0.1% appl topical BID HPI HPI Comments History of Present Illness Details The patient is a pleasant 57 year old female who returns to the clinic for pre-operative surgical weight loss management. They were last seen in the office on 08/29/21, recorded weight at that time was 332.2 pounds, with a BMI of 49. Today's weight is 310.9 pounds and BMI is 45.9. There was a concern about her Lichen Planus and surgery possibly exacerbating the underlying disease and she was going to follow up with her clock assembler, Dr Lundy, about this. She has also since been seen [place] [facility] [place] with [place] RVR and started on Xarelto. Seen by gen surg for possible breast mass that was determined to be dense breast tissue and not a mass but given BRCA1 gene +, recc was for mastectomy. She has also undergone bilateral GSV ablation by vascular at [facility]. The patient reports that she is now off xarelto as she experienced internal bleed. She is scheduled for EGD scheduled for this . Cardioversion 2 weeks ago without NSR. She saw pulmonology for mild COPD. HgbA1c 7.1 She has been experiencing bilateral plantar fasciitis and can only do chair exercises. She also states her PCP does not feel she is a candidate for bariatric surgery given all the ongoing comorbidities. She was inquiring about our program and her appropriateness. She states since last being seen she has been making better food choices and doing the best she can. [facility] Medical History Back pain Depression GERD (gastroesophageal reflux disease) HTN (hypertension) Lichen planus Type 2 diabetes mellitus Surgical History History of partial hysterectomy History of partial hysterectomy Hx of biopsy Hx of breast augmentation Hx of umbilical hernia repair Family History Mother Breast cancer, Onset Age: 40 Father Kidney failure Sister Breast cancer, Onset Age: 37 Son No problems noted. Sister Ovarian cancer, Onset Age: 55 Family/Other Breast cancer, Onset Age: 33 Social History Alcohol intake: current Alcohol intake frequency: a few times a month Alcohol type: beer and wine Patient Tobacco Use Status: Former Tobacco user Quit Date: 2013 Years Smoked: 22 e-Cigarette/Vaping Use: Currently Using Current occupation: Rt handed Female Reproductive History Menstrual Age of Menarche: 15 Physical Exam Vital Signs: BMI result Body Mass Index 45.9 Assessment & Plan Assessment & Plan (1) Morbid obesity due to excess calories: Code(s): E66.01 - Morbid (severe) obesity due to excess calories Plan: She is going to explore medical weight loss programs. She will discuss with her other providers (derm, cards, pulomnology) possible bariatric surgery in the future. She is also going to address her more pressing issuees including uncontrolled AF, GI Bleed from Xarelto, bilateral plantar fasciitis and COPD. She may call our office in the future as she wishes and becomes more appropriate for bariatric surgery. Telehealth Telehealth Location of provider rendering services: practice address Location of patient: address on file Patient Identification confirmed using: Name, : Yes Telehealth method: video Patient verbally consented to treatment: Yes Patient verbally consented to billing insurance company: Yes Patient informed of any privacy concerns related to visit: Yes Minutes spent on Phone/Video with Pt.: 15 Coding Level of Care Code Tele Est Pt Level 3 (78639) Diagnoses Morbid obesity due to excess calories E66.01 Time Spent (min) 20
[2023-01-04 14:47] VITALS: BMI 45.9
== END 2023-01-04 15:11 | disposition home or self-care (01) ==
LOC: HO.HBS 15:06
PROVIDERS: PCP General Practice; Visit Provider Physician Assistant Surgical
DX: E66.01 Morbid (severe) obesity due to excess calories (principal)
CPT/HCPCS: 99213

== ENCOUNTER → 2023-01-04 15:06 | Outpatient (BNVA) | payer MEDICAID, SELFPAY | PROVIDERS: PCP General Practice; Visit Provider Physician Assistant Surgical ==

== ENCOUNTER 2023-01-05 10:48 | Outpatient (REF) | payer MEDICAID, SELFPAY ==
[2023-01-05 13:40] LABS: MANUAL DIFF FLAG NO
[2023-01-05 14:00] LABS: Basophils Percent Auto 0.3 % (0-2); Eosinophils Absolute Auto 0.1 X10*3/uL (0.0-0.4); Eosinophils Percent Auto 1.4 % (0-4); Hematocrit 31.1 % (37.0-47.0); Hemoglobin 9.5 g/dl (12.0-16.0); Imm Gran Abs Auto 0.05 X10*3/uL (0.00-0.03); Imm Gran Pct Auto 0.7 % (0.0-0.4); Lymphocytes Absolute Auto 1.3 X10*3/uL (1.2-4.9); Lymphocytes Percent Auto 18.2 % (20-40); Mean Corpuscular HGB Conc 30.5 g/dl (31.0-35.0); Mean Corpuscular Hemoglobin 28.4 pg (27.0-33.0); Mean Corpuscular Volume 92.8 fL (80.0-98.0); Mean Platelet Volume 11.8 fL (9.4-12.3); Monocytes Absolute Auto 0.8 X10*3/uL (0.1-1.2); Monocytes Percent Auto 10.6 % (2-11); Neutrophils Percent Auto 68.8 % (45-73); Platelet Count 409 X10*3/uL (160-400); Red Blood Count 3.35 X10*6/uL (4.20-5.50); Red Cell Distribution Width 14.1 % (11.0-16.0); White Blood Count 7.3 X10*3/uL (4.8-10.8)
== END 2023-01-05 10:49 | disposition home or self-care (01) ==
LOC: HO.HHCL 10:48
PROVIDERS: Visit Provider General Practice
DX: K92.2 Gastrointestinal hemorrhage, unspecified (principal)
CPT/HCPCS: 36415; 85025

== ENCOUNTER 2023-01-06 10:00 | Outpatient (AMB) | payer MEDICAID, SELFPAY ==
[2023-01-06 10:12] VITALS: BP 124/82; PULSE 132; BMI 45.6
--- NOTE | 2023-01-06 10:12 | A.OFFVIS_ITS ---
Intake Vital Signs 01/06/23 10:12 Height 5 ft 9 in Weight 308 lb 10.354 oz BMI 45.6 BP 124/82 Blood Pressure Location Lt brachial Position Sitting Pulse 132 H Intake Visit Reasons: 3 mth fu Intake Note: 3 month follow-up with ekg c/o palpitations has been in [facility] x2 also had cardioversion Rolling Chair Pusher Required: No [facility] Allergy (Severe, Verified 09/04/22 13:41) Rash Seasonal Allergies Allergy (Mild, Verified 09/04/22 13:41) Itching Medication List - Last Reconciled 01/06/23 by Nik Esposito MD acetaminophen 1,000 mg PO Q6H PRN blood sugar diagnostic (FreeStyle Lite Strips) As directed calcipotriene 0.005% topical BID clobetasol 0.05% grams topical BID diclofenac sodium 1% 4 grams topical QID diltiazem HCl 240 mg PO QPM flecainide 100 mg PO ONCE hydrochlorothiazide 25 mg PO DAILY ipratropium bromide 17 mcg/actuation (Atrovent HFA) 2 puffs PO TID lancets (FreeStyle Lancets) As directed melatonin 5 - 10 mg PO BEDTIME PRN metformin ER 1,000 mg PO BID montelukast 10 mg PO DAILY PRN sertraline 25 mg PO DAILY triamcinolone acetonide 0.1% appl topical BID HPI HPI Comments History of Present Illness Details Kerry comes for follow up. She has been feeling increasing symptoms of shortness of breath. She recently has seen Dr. Cuevas for atrial arrhythmias. Was noted to be in atrial flutter at that time was started on flecainide therapy. She had been on Xarelto therapy. Although last week she had doc alert stools and this was positive for blood. Since then his Xarelto has been stopped. She continues to have symptoms of exertional shortness of breath with minimal exertion. No clear orthopnea, PND. Denies any prolonged palpitation or fast heart rate. Does complain of lightheadedness. Denies any exertional chest pain. Comes to office today taking flecainide only once a day and Cardizem and noted to be in atrial flutter with rapid ventricular response at 132 beats per minute. She has upper GI endoscopy scheduled for tomorrow. [facility] Medical History Back pain Depression GERD (gastroesophageal reflux disease) HTN (hypertension) Lichen planus Type 2 diabetes mellitus Surgical History History of partial hysterectomy History of partial hysterectomy Hx of biopsy Hx of breast augmentation Hx of umbilical hernia repair Family History Mother Breast cancer, Onset Age: 40 Father Kidney failure Sister Breast cancer, Onset Age: 37 Son No problems noted. Sister Ovarian cancer, Onset Age: 55 Family/Other Breast cancer, Onset Age: 33 Social History Alcohol intake: current Alcohol intake frequency: a few times a month Alcohol type: beer and wine Patient Tobacco Use Status: Former Tobacco user Quit Date: 2013 Years Smoked: 22 e-Cigarette/Vaping Use: Currently Using Current occupation: Rt handed Female Reproductive History Menstrual Age of Menarche: 15 Review of Systems Const Denies chills, Denies fatigue, Denies fever(s), Denies frequent falls, Denies we akness, Denies weight gain and Denies weight loss ENT Denies dizziness Card Denies chest pain, Denies leg edema, Denies lightheadedness, Denies palpit ations, Denies dyspnea, Denies dyspnea on exertion, Denies orthopnea and Denies other (loss of consciousness) Resp Denies cough, Denies dyspnea and Denies dyspnea on exertion GI Denies hematochezia and Denies change in stool character Musc Denies abnormal gait, Denies muscle weakness, Denies numbness, Denies radiating pain into limb and Denies tingling Neuro Denies abnormal gait, Denies dizziness, Denies frequent falls, Denies numbness, Denies tingling and Denies weakness Endo Denies fatigue and Denies palpitations Physical Exam Vital Signs: Last Vital Signs Pulse 132 H 01/06/23 10:12 BP 124/82 01/06/23 10:12 BMI result Body Mass Index 45.6 Const General: cooperative, healthy appearing, comfortable and no acute distress Orientation/consciousness: patient oriented x3 Neck Neck: Yes normal visual inspection Resp Effort & Inspection: normal respiratory effort Auscultation: no rales, no rhonchi and no wheezes Cardio Jugular venous distension: no JVD Rate: tachycardic Rhythm: regular rhythm Heart sounds: S1 normal heart sound present, S2 normal heart sound present, no murmurs and no rubs Neuro General: patient oriented x3 Extrem General: Yes normal to inspection Psych Appearance: grossly normal Mental Status: mental status grossly normal Speech and movement: Normal speech and movement present Office Procedures EKG Details: EKG shows atrial flutter with 2:1 conduction, with incomplete right bundle- branch block and Q-waves in inferior leads [id number], Complete Assessment & Plan Assessment & Plan (1) Atrial flutter: Code(s): I48.92 - Unspecified atrial flutter Plan: Persistent atrial flutter in this middle-aged woman which is difficult control with rate and is highly symptomatic. She also has recent event which would suggest upper GI bleed. She does use aspirin a lot. Advised to avoid using nonsteroidals. Given her symptoms and need for upper GI endoscopy rapid heart rate of suggested to go to the emergency room for better rate control with IV medications and then undergoing GI procedure to determine the etiology for bleed and treatment. She currently cannot be an oral anticoagulant therapy and risk of stroke was discussed with her. She is currently not maintained with overall rate control strategy with Cardizem. Will most likely require IV Cardizem drip. Cannot pursue rhythm control approach although she would benefit from it till she can take oral anticoagulation therapy. She also has rheumatic appearing mitral valve with mitral stenosis and mitral regurgitation at complicates her management. She is recommended go to our emergency room but she prefers to go to [facility]. She prefers to go home and then present to the emergency room at [facility]. Management plan was discussed with her. Will follow up with her and 2 months time Coding Level of Care Code Est Pt Level 4 (00928) Diagnoses Atrial flutter I48.92 CPT Codes EKG - CPT: 57144-[id number], Complete ([id number])
== END 2023-01-06 11:19 | disposition home or self-care (01) ==
PROVIDERS: PCP General Practice; Referring Provider General Practice; Visit Provider Internal Medicine Cardiovascular Disease
DX: I48.92 Unspecified atrial flutter (principal)
CPT/HCPCS: 93010; 99214

== ENCOUNTER → 2023-01-06 10:00 | Outpatient (BNVA) | payer MEDICAID, SELFPAY | PROVIDERS: PCP General Practice; Referring Provider General Practice; Visit Provider Internal Medicine Cardiovascular Disease | DX: I48.92 Unspecified atrial flutter (principal) | CPT/HCPCS: 93005; 99212 ==

== ENCOUNTER → 2023-01-15 19:00 | Outpatient (BNV) | payer MEDICAID, SELFPAY | PROVIDERS: PCP General Practice; Visit Provider Internal Medicine | DX: G47.33 Obstructive sleep apnea (adult) (pediatric) (principal) | CPT/HCPCS: 95810 ==

== ENCOUNTER → 2023-01-15 19:30 | Outpatient (REF) | payer MEDICAID, SELFPAY | LOC: HO.SL 19:30 | PROVIDERS: PCP General Practice; Visit Provider General Practice | DX: G47.33 Obstructive sleep apnea (adult) (pediatric) (principal) | CPT/HCPCS: 95810 ==

== ENCOUNTER 2023-03-02 09:54 | Outpatient (REF) | payer MEDICAID, SELFPAY ==
[2023-03-02 13:15] LABS: B Type Natriuretic Peptide 510 pg/mL (<100)
[2023-03-02 13:23] LABS: Anion Gap 12 (12-20); Blood Urea Nitrogen 21 mg/dL (9-16); Calcium 9.7 mg/dL (8.4-10.2); Carbon Dioxide 25 mmol/L (22-29); Chloride 108 mmol/L (96-108); Estimated Glomerular Filt Rate 59; Glucose Random 124 mg/dL (60-115); Potassium 3.4 mmol/L (3.3-5.1); Sodium 142 mmol/L (135-145)
== END 2023-03-02 09:55 | disposition home or self-care (01) ==
LOC: HO.LAB 09:54
PROVIDERS: PCP General Practice; Visit Provider Internal Medicine
DX: I48.3 Typical atrial flutter (principal); I34.0 Nonrheumatic mitral (valve) insufficiency; I10 Essential (primary) hypertension; Z79.899 Other long term (current) drug therapy
CPT/HCPCS: 36415; 80048; 83880; 93005; 99212

== ENCOUNTER 2023-03-02 10:03 | Outpatient (AMB) | payer MEDICAID, SELFPAY ==
--- NOTE | 2023-03-02 10:07 | A.OFFVIS_ITS ---
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 Allergies Bleach (Sodium Hypochlorite) Allergy (Severe, Verified 01/27/23 14:20) Anaphylaxis dulaglutide [From Trulicity] Allergy (Severe, Verified 09/04/22 13:41) Rash Seasonal Allergies Allergy (Mild, Verified 09/04/22 13:41) Itching Medication List - Last Reconciled 03/02/23 by Nik Esposito MD acetaminophen 1,000 mg PO Q6H PRN blood sugar diagnostic (FreeStyle Lite Strips) As directed calcipotriene 0.005% 1 appl topical BID clobetasol 0.05% 1 g topical BID diclofenac sodium 1% 4 grams topical QID diltiazem HCl 240 mg PO QPM ferrous sulfate (FeroSul) 325 mg PO BID hydrochlorothiazide 25 mg PO DAILY ipratropium bromide 17 mcg/actuation (Atrovent HFA) 2 puffs PO TID lancets (FreeStyle Lancets) As directed melatonin 5 - 10 mg PO BEDTIME PRN metformin ER 1,000 mg PO BID montelukast 10 mg PO DAILY PRN rivaroxaban (Xarelto) 20 mg PO DAILY sertraline 25 mg PO DAILY sotalol 120 mg PO BID triamcinolone acetonide 0.1% 1 appl topical BID HPI HPI Comments History of Present Illness Details Kerry comes for follow-up. She underwent cardioversion that was s tarted on sotalol. On sotalol she is doing well and then she ran our sotalol for 5 days. She had then recurrent palpitation irregular heartbeat with atrial fibrillation rapid ventricular response. She is not back on sotalol but taking 120 mg the morning and 80 mg in the evening. She is taking Cardizem as well as Xarelto regularly. Patient has sleep study on January 20 but no report was forwarded to any of the providers. Patient is not aware of the results. This is noted to show moderately severe sleep apnea with nocturnal hypoxemia. Patient starting to lose weight says lost about 40 lb. She denies any significant symptoms of heart failure at current time. Denies any leg swelling, abdominal distension. No orthopnea, PND. She feels well today. [facility] Medical History (Updated 03/02/23 @ 10:45 by Nik Esposito MD) Atrial flutter, paroxysmal Atrial flutter Lichen planus GERD (gastroesophageal reflux disease) Back pain Depression HTN (hypertension) Type 2 diabetes mellitus Surgical History Hx of umbilical hernia repair History of partial hysterectomy History of partial hysterectomy Hx of biopsy Hx of breast augmentation Family History Mother Breast cancer, Onset Age: 40 Father Kidney failure Sister Breast cancer, Onset Age: 37 Son No problems noted. Sister Ovarian cancer, Onset Age: 55 Family/Other Breast cancer, Onset Age: 33 Social History Household Members: Children Housing: House Alcohol intake: current Alcohol intake frequency: a few times a month Alcohol type: beer and wine Patient Tobacco Use Status: Former Tobacco user Quit Date: 2013 Smoked: 22 e-Cigarette/Vaping Use: Currently Using service: No Current occupational status: retired Current occupation: [employer] Female Reproductive History Menstrual Age of Menarche: 15 Review of Systems Const Denies chills, Denies fatigue, Denies fever(s), Denies frequent falls, Denies weakness, Denies weight gain and Denies weight loss ENT Denies dizziness Card Denies chest pain, Denies leg edema, Denies lightheadedness, Denies palpitations, Denies dyspnea, Denies dyspnea on exertion, Denies orthopnea and Denies other (loss of consciousness) Resp Denies cough, Denies dyspnea and Denies dyspnea on exertion GI Denies hematochezia and Denies change in stool character Musc Denies abnormal gait, Denies muscle weakness, Denies numbness, Denies radiating pain into limb and Denies tingling Neuro Denies abnormal gait, Denies dizziness, Denies frequent falls, Denies numbness, Denies tingling and Denies weakness Endo Denies fatigue and Denies palpitations Physical Exam Vital Signs: Last Vital Signs Pulse 68 03/02/23 10:08 BP 140/82 H 03/02/23 10:08 BMI result Body Mass Index 45.2 Const General: cooperative, healthy appearing, comfortable and no acute distress Orientation/consciousness: patient oriented x3 Neck Neck: Yes normal visual inspection Resp Effort & Inspection: normal respiratory effort Auscultation: no rales, no rhonchi and no wheezes Cardio Jugular venous distension: no JVD Rate: regular rate Rhythm: regular rhythm Heart sounds: S1 normal heart sound present, S2 normal heart sound present, no click, no gallops and no rubs Peripheral pulses: Peripheral pulses 2+ throughout Neuro General: patient oriented x3 and no focal motor deficits Extrem General: Yes no clubbing, cyanosis or edema Psych Appearance: grossly normal Mental Status: mental status grossly normal Speech and movement: Normal speech and movement present Office Procedures EKG Details: EKG shows normal sinus rhythm normal EKG [id number], Complete Assessment & Plan Assessment & Plan (1) Atrial flutter, paroxysmal: Code(s): I48.92 - Unspecified atrial flutter Plan: Highly symptomatic paroxysmal atrial fibrillation requiring rhythm support and doing very well with it. She has no heart failure symptoms. She is encouraged to be extremely compliant with medications to prevent recurrent hospitalizations related to atrial flutter. She shows understanding. Continue sotalol therapy to 120 mg b.i.d. and continue Cardizem therapy. Blood pressure is well optimized. Continue participate in weight loss program. Noted that she has significant sleep apnea and this requires correction to prevent future atrial remodeling and recurrent atrial arrhythmias. Will refer to sleep specialist as soon as possible. Continue full oral anticoagulation, currently on Xarelto 20 mg daily. She is not having any GI bleeding. Continue monitor CBC regularly. Importance of oral anticoagulation therapy was discussed. She understands and agrees. (2) Mitral regurgitation: Code(s): I34.0 - Nonrheumatic mitral (valve) insufficiency Plan: Mitral regurgitation which was noted while she was in rapid atrial arrhythmias. Could be as result of atrial arrhythmias. Will repeat echocardiogram in couple months while she maintains rhythm to see if there is significant mitral regurgitation that needs to be corrected and/or require further investigation. Currently not having any symptoms related to it. (3) HTN (hypertension): Code(s): I10 - Essential (primary) hypertension Plan: Hypertension which is currently well optimized advised to monitor blood pressure at home maintain a log low-salt diet was discussed. Will require treatment of her sleep apnea. Also continue participate in aggressive weight loss program. Will follow up in the clinic in 3 months time, sooner p.r.n.. Thank you for allowing me to partake in her care Coding Level of Care Code Est Pt Level 4 (37179) Diagnoses Atrial flutter, paroxysmal I48.92 Mitral regurgitation I34.0 HTN (hypertension) I10 CPT Codes EKG - CPT: 83619-[id number], Complete ([id number])
[2023-03-02 10:08] VITALS: BP 140/82; PULSE 68; BMI 45.2
== END 2023-03-02 10:38 | disposition home or self-care (01) ==
PROVIDERS: PCP General Practice; Visit Provider Internal Medicine Cardiovascular Disease
DX: I48.92 Unspecified atrial flutter (principal); I34.0 Nonrheumatic mitral (valve) insufficiency; I10 Essential (primary) hypertension
CPT/HCPCS: 93010; 99214